=== PATIENT | male | born 1970 | race Hispanic/Latino ===

== ENCOUNTER 2025-06-29 12:50 | Emergency (ER) | payer SELFPAY ==
[~2025-06-29] VITALS: Ht 170.2 cm; Wt 79.4 kg
[2025-06-29] MEDS: MAGNESIUM CITRATE 296 ML SOLUTION PO ONE (14:44)
[2025-06-29 14:51] VITALS: BP 151/89; PULSE 88; RESP 18; TEMP 98.4; O2SAT 98
[2025-06-29] MEDS ORDERED: LACT10PA5 PO (15:06)
--- NOTE | 2025-06-29 15:06 | ERN ---
ED Note History of Present Illness Stated Complaint: ABDOMINAL PAIN Chief Complaint: Constipation Time Seen by MD: 12:54 Time Seen by Midlevel: 12:58 Dictation: 54-year-old male coming in with complaints of constipation. Patient states he feels constipated and started 1 hour ago. Last BM was yesterday. Denies any fever, nausea or vomiting or abdominal pain. Denies any medical or surgical history. Allergies: Coded Allergies: No Known Allergies (Unverified Allergy, Unknown, 06/29/25) Past Medical History Past Medical History: No Pertinent History Surgical History: Other, None Review of System Dictation Constitutional: Negative for fever,chills, and weight loss Eyes: Negative for injury, pain,redness, and discharge ENT: Negative for injury,pain or swelling Cardiovascular: Negative for chest pain, palpitations, and edema Respiratory: Negative for shortness of breath, cough, and wheezing, Abdomen/GI: Negative for abdominal pain, nausea, vomiting, diarrhea, positive for constipation Back: Negative for injury and pain : Negative for injury, bleeding and discharge MS/Extremity: Negative for injury and deformity Skin: Negative for rash, and discoloration Neuro: Negative for headache, weakness, numbness, tingling, and seizure Psych: Negative for suicide ideation, homicidal ideation, and hallucinations Review of Systems: was completed Initial Vital Sign VS Vital Signs Date Time Temp Pulse Resp B/P (MAP) Pulse Ox O2 Delivery O2 Flow Rate FiO2 06/29/25 12:53 98.4 105 20 169/96 98 Room Air 06/29/25 14:51 0 21 Physical Exam Dictation General: awake, alert, NAD Head/Face: Normocephalic, atraumatic Eyes: PERRL, EOMI, vision at baseline ENT: oral cavity clear, TMs clear, no signs of infection Neck: Trachea midline, supple, no nuchal rigidity Cardiovascular: RRR, normal S1/S2, No MRGs, no JVD Respiratory: CTAB, no respiratory distress, No rales or wheezes Abdomen: Soft, non-tender, non-distended, normal bowel sounds, no guarding or rebound. Skin: Warm, dry, normal turgor, no rash MS/Extremity: Pulses equal, no cyanosis, neurovascular intact, FROM Neuro: COAx4, GCS 15, strength 5/5, CN 2-12 intact, normal cerebellar exam, normal gait, Psych: Normal behavior, mood, and affect normal ED Course ED Course Orders Procedure Category Date Status Time Abd 1vw RAD 06/29/25 Taken 12:57 Magnesium Citrate PHA 06/29/25 Complete (Magnesium Citrate) 13:30 Current Medications Medications (Trade) Dose Ordered Sig/Jordan Route PRN Reason Start Time Stop Time Status Last Admin Dose Admin Magnesium Citrate (Magnesium Citrate) 296 ml ONCE ONCE PO 06/29/25 13:30 06/29/25 13:31 DC 06/29/25 14:44 Vital Signs Date Time Temp Pulse Resp B/P (MAP) Pulse Ox O2 Delivery O2 Flow Rate FiO2 06/29/25 14:51 98.4 88 18 151/89 98 Room Air* 0 21 06/29/25 12:53 98.4 105 20 169/96 98 Room Air Medical Decision Making MDM MDM: 54-year-old male coming in with complaints of constipation. Patient states he feels constipated and started 1 hour ago. Last BM was yesterday. Denies any fever, nausea or vomiting or abdominal pain. Denies any medical or surgical history. Please him citrate given in the ER, educated to be done. KUB interpreted by ER MD, shows constipation. We will prescribe patient lactulose to take at home for constipation. Differential diagnosis: Constipation, fecal impaction Rationale: Tests considered and ordered secondary to shared decision making include: Previous outside records reviewed: Old ER visits. Risk of complication and/or morbidity or mortality of patient management: None Medications-Per medication reconciliation Need for hospitalization: Patient does not meet criteria for hospitalization. Need for emergency major/minor surgery: No There are no social concerns with this patient. Prescription drug management Prescriptions will include symptomatic care Patient's prior external medical records from other ER visits were reviewed by me as indicated. Prior testing and results from previous visits were reviewed. Prior tests were taken into account with medical decision making and resource utilization, independent historian/historians were used to obtain complete medical history. I independently interpreted the test that were performed, results were reviewed by me and considered findings on radiology if ordered. Medical management and examination interpretation discussions were had by me with other qualified healthcare professionals as indicated for the patient's care. DX & DISP Disposition: Discharge Departure Impression: Primary Impression: Constipation Condition: Stable Scripts Lactulose (Lactulose) 10 Gram Packet 1 PACKET PO DAILY for 10 Days, #10 PACKET 0 Refills Prov: SILVA,LETA 911 EMERGENCY DISPATCHER 06/29/25 Additional Instructions: Take the lactulose for constipation. Increase fluid intake and fiber intake in your diet. Follow up with your primary care doctor. Referrals: SELF,REFERRAL (PCP) Time of Disposition: 15:05 I have reviewed the case, and I agree with, Diagnosis and Plan LETA SILVA CNP Jun 29, 2025 15:06
--- NOTE | 2025-06-29 15:08 | HMCIMG ---
EXAM: CR Abdomen, 2 View. CLINICAL HISTORY: constipation COMPARISON: None provided. FINDINGS: BOWEL: The bowel gas pattern is within normal limits. PERITONEUM/SOFT TISSUES: No free air evident. No pathologic appearing calcification. BONES: No acute osseous abnormality. IMPRESSION: The bowel gas pattern is within normal limits. /[employer]co
== END 2025-06-29 15:13 | disposition home or self-care (01) ==
LOC: EDH 12:50
DX: K59.00 Constipation, unspecified (principal)
CPT/HCPCS: 74018; 99283